=== PATIENT | female | born 1960 | race Caucasian/White ===

== ENCOUNTER 2017-01-27 12:55 | Emergency (ER) | payer MEDICARE, BC ==
[2017-01-27] MEDS ORDERED: Morphine INJ* 4 MG/ML 1 ML SYRINGE IV ONE (13:30)
[2017-01-27] MEDS ORDERED: NS 0.9% 1000 ML* 1,000 ML IV ONE (13:30)
[2017-01-27] MEDS ORDERED: Ondansetron INJ* 2 MG/ML VIAL IV ONE (13:30)
[2017-01-27] MEDS ORDERED: Ondansetron INJ* 2 MG/ML VIAL ONE (13:32)
[2017-01-27] MEDS ORDERED: Morphine INJ* 4 MG/ML 1 ML SYRINGE ONE (13:32)
[2017-01-27 14:11] LABS: Hematocrit 38 % (35-47); Hemoglobin 12.6 g/dl (12.0-16.0); Mean Corpuscular HGB Conc 33 g/dl (31-36); Mean Corpuscular Hemoglobin 29 pg (27-31); Mean Corpuscular Volume 87 fL (80-97); Mean Platelet Volume 8 um3 (7.4-10.4); Red Blood Count 4.35 10^6/ul (4.0-5.4); Red Cell Distribution Width 14 % (10.5-15); White Blood Count 9.4 10^3/ul (3.5-10.8)
[2017-01-27 14:21] LABS: Albumin 4.2 g/dL (3.2-5.2); Calcium 9.8 mg/dL (8.6-10.3); EGFR African American 106.1 (>60); EGFR Non-African American 82.5 (>60); Globulin 2.6 g/dL (2-4); Potassium 3.7 mmol/L (3.5-5.0); Total Bilirubin 0.4 mg/dL (0.2-1.0); Total Protein 6.8 g/dL (6.4-8.9)
--- NOTE | 2017-01-27 14:21 | RAD ---
Indication: Fall, head injury. CT of the brain was performed without IV contrast. Ventricular structures are midline. No midline shift is noted. The extra-axial spaces are unremarkable. There is no evidence of intracranial mass or hemorrhage. No other high or low density lesions are identified. Mastoid air cells and paranasal sinuses are unremarkable. IMPRESSION: No intracranial mass or hemorrhage is noted.
--- NOTE | 2017-01-27 14:35 | RAD ---
HISTORY: Fall, facial trauma COMPARISONS: None relevant TECHNIQUE: Multiple contiguous axial CT scans were obtained of the face without intravenous contrast, with coronal and sagittal multiplanar reformations. FINDINGS: BONES: There is no displaced fracture or dislocation. The orbital rim is intact. The zygomatic arch is intact. The pterygoid plates are intact. ORBITS: The globes are round. The optic nerves are symmetric. The extraocular musculature is normal. There is no post septal or intraconal inflammatory change. There is no retrobulbar hematoma. PARANASAL SINUSES: The paranasal sinuses are clear. The nasal septum is deviated to the right BRAIN AND SOFT TISSUE: Unremarkable. OTHER: None. IMPRESSION: NO FACIAL FRACTURE
--- NOTE | 2017-01-27 14:36 | RAD ---
Indication: Neck injury. CT of the cervical spine was obtained in the axial plane. Sagittal and coronal reconstructed images were obtained. Skull base demonstrates no fracture. Mastoid air cells are well aerated. C1 ring is intact. The vertebral bodies appear normal in height. No evidence of fracture is noted. Disc space narrowing at C4-C5, C5-C6 and C6-C7 is noted. Spondylitic ridge is noted. No central foraminal stenosis is identified. Lung apices are otherwise unremarkable. IMPRESSION: Degenerative disc disease at C4-C5, C5-C6 and C6-C7 without evidence of fracture.
[2017-01-27] MEDS ORDERED: HYDROmorphone* 1 MG/ML 1 ML SYR IV SLOW PU ONE ×2 (14:48→17:13)
--- NOTE | 2017-01-27 16:01 | RAD ---
INDICATION: Right shoulder injury. TECHNIQUE: 4 views of the right shoulder were obtained. FINDINGS: There is mild superior subluxation of the humeral head. The bones are otherwise in normal alignment. No fracture is seen. There is mild to moderate osteoarthritic change in the glenohumeral joint. IMPRESSION: 1. MILD SUPERIOR SUBLUXATION OF THE HUMERAL HEAD NO EVIDENCE FOR FRACTURE. 2. MILD TO MODERATE OSTEOARTHRITIC CHANGE.
--- NOTE | 2017-01-27 16:03 | RAD ---
INDICATION: Right clavicle trauma. TECHNIQUE: 2 views of the right clavicle were obtained. FINDINGS: The bones are in normal alignment. No fracture is seen. Joint spaces appear maintained. IMPRESSION: NO EVIDENCE FOR FRACTURE.
--- NOTE | 2017-01-27 16:07 | RAD ---
INDICATION: Trauma, right shoulder pain. COMPARISON: There are no prior studies available for comparison. TECHNIQUE: Dual-energy PA and lateral views of the chest were obtained. FINDINGS: The heart is within normal limits in size. Mediastinal and hilar contours appear within normal limits. The lungs are clear. No pleural effusion or pneumothorax is seen. There are multiple surgical clips in the left axillary region most consistent with a prior axillary node dissection. No fracture is seen. IMPRESSION: POSTSURGICAL CHANGES, NO EVIDENCE FOR ACUTE FINDING.
[2017-01-27 16:36] LABS: Urine Bilirubin Negative (Negative); Urine Glucose Negative (Negative); Urine Nitrite Negative (Negative)
--- NOTE | 2017-01-27 18:26 | ED ---
Doug Cordon Angela, scribed for Mook Chandler MD on 01/27/17 at 1401 . Adult Trauma - HPI Summary HPI Summary: This pt is a 56 y/o right-hand dominant female presenting to [facility] s/p mechanical fall today. Pt notes she tripped over a dog leash and fell forward, and landed on her face on the ground. Pt reports facial pain, right clavicular pain, right shoulder pain, right-sided back pain, and neck pain on the right. Her pain is aggravated with deep breathing. She states having pain in her teeth. Pt denies SOB, chest pain, knee pain, hip pain, abd pain, LOC, syncope, weakness or numbness in UE or LE. - History of Current Complaint Chief Complaint: EDGeneral Stated Complaint: FALL Hx Obtained From: Patient Mechanism of Injury: Fall Current Severity: Severe Pain Intensity: 8 Pain Scale Used: 0-10 Numeric Location: Head - face, right shoulder, Neck Aggravating Factor(s): Movement Alleviating Factor(s): Nothing Associated Signs & Symptoms: Positive: Ecchymosis. Negative: SOB, Chest Pain, Nausea/Vomiting, Loss of Consciousness, Numbness/Weakness - Allergy/Home Medications Allergies/Adverse Reactions: Allergies Allergy/AdvReac Type Severity Reaction Status Date / Time No Known Allergies Allergy Verified 11/01/15 12:15 PMH/Surg Hx/FS Hx/Imm Hx Endocrine/Hematology History: Denies: Hx Diabetes Cardiovascular History: Reports: Hx Hypertension - CONTROLLED Denies: Hx Pacemaker/ICD Respiratory History: Denies: Hx Asthma History: Denies: Hx Renal Disease Musculoskeletal History: Reports: Hx Back Problems Denies: Hx Rheumatoid Arthritis, Hx Osteoporosis Sensory History: Denies: Hx Hearing Aid Neurological History: Reports: Other Neuro Impairments/Disorders - PAIN CLINIC PATIENT Psychiatric History: Denies: Hx Panic Disorder - Cancer History Cancer Type, 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, Hx Chemotherapy: Yes - BREAST 2007 Hx Radiation Therapy: Yes - BREAST 2008 - Surgical History Surgery Procedure, Year, and Place: herniated L4/5 &L5-S1 DISKECTOMY/ LAMINECTOMY 1996, 2000 (poor outcome first time)LUMPECTOMY LEFT BREAST 2007, BUNIONECTOMY AND SCREW ON LT BIG TOE,WISDOM TEETH,LT KNEE MENISCUS Infectious Disease History: No Infectious Disease History: Denies: Hx Clostridium Difficile, Hx Hepatitis, Hx Human Immunodeficiency Virus (HIV), Hx of Known/Suspected MRSA, Hx Shingles, Hx Tuberculosis, Hx Known/ Suspected VRE, Hx Known/Suspected VRSA, History Other Infectious Disease, Traveled Outside the [place] in Last 30 Days - Social History Alcohol Use: Occasionally Alcohol Amount: several drinks/week Substance Use Type: Reports: None Smoking Status (MU): Never Smoked Tobacco Review of Systems Negative: Fever, Chills Positive: Dental Pain, Other - face pain Negative: Chest Pain Negative: Shortness Of Breath Negative: Abdominal Pain, Vomiting, Nausea Positive: no symptoms reported Positive: Other - right clavicular pain, right shoulder, neck pain, back pain Positive: Bruising Negative: Weakness, Numbness Positive: Anxious All Other Systems Reviewed And Are Negative: Yes Physical Exam - Summary Physical Exam Summary: The patient is well-nourished in mild acute distress. The skin is warm and dry and skin color reflects adequate perfusion. HEENT: The head is normocephalic. The pupils are equal and reactive. Extra ocular movements are intact. The conjunctivae are clear and without drainage. Nares are patent and without drainage. Mouth reveals moist mucous membranes and the throat is without erythema and exudate. The external ears are intact. The ear canals are patent and without drainage. The tympanic membranes are intact. There is no blood in the ear drums. Pt has abraded her nose and below her nose bilaterally. Pt has fractured her left lateral incisor and canine tooth. There is no numbness in her face. Neck has some pain. Respiratory: Chest is non-tender. Lungs are clear to auscultation and breath sounds are symmetrical and equal. Cardiovascular: Hear is regular rate and rhythm. There is no murmur or rub auscultated. There is no peripheral edema and pulses are symmetrical and equal. Pt has good pulses distally. Abdomen: The abdomen is soft and non-tender. There are normal bowel sounds heard in all four quadrants and there is no organomegaly palpated. Musculoskeletal: There is no reproducible back pain. Extremities are non- tender with full range of motion. There is good capillary refill. There is no peripheral edema or calf tenderness elicited. There is marked tenderness on right shoulder and clavicle with ecchymosis and swelling. Neurological: Patient is alert and oriented to person, place and time. The patient has symmetrical motor strength in all four extremities. Psychiatric: The patient has an appropriate affect and does not exhibit any anxiety or depression. GCS: 15 Triage Information Reviewed: Yes Vital Signs On Initial Exam: Initial Vitals Temp Pulse Resp BP Pulse Ox 97.6 F 70 20 112/73 99 01/27/17 13:16 01/27/17 13:16 01/27/17 13:16 01/27/17 13:16 01/27/17 13:16 Vital Signs Reviewed: Yes Diagnostics - Vital Signs Vital Signs Temp Pulse Resp BP Pulse Ox 01/27/17 13:33 20 01/27/17 13:20 97.3 F 88 20 112/73 100 01/27/17 13:16 97.6 F 70 20 112/73 99 - Laboratory Lab Results: Lab Results 01/27/17 01/27/17 01/27/17 Range/Units 13:30 13:30 13:30 WBC 9.4 (3.5-10.8) 10^3/ul RBC 4.35 (4.0-5.4) 10^6/ul Hgb 12.6 (12.0-16.0) g/dl Hct 38 (35-47) % MCV 87 (80-97) fL MCH 29 (27-31) pg MCHC 33 (31-36) g/dl RDW 14 (10.5-15) % Plt Count 295 (150-450) 10^3/ul MPV 8 (7.4-10.4) um3 Neut % (Auto) 71.6 (38-83) % Lymph % (Auto) 18.5 L (25-47) % [place] % (Auto) 7.6 (1-9) % Eos % (Auto) 1.5 (0-6) % Baso % (Auto) 0.8 (0-2) % Absolute Neuts (auto) 6.7 (1.5-7.7) 10^3/ul Absolute Lymphs (auto) 1.7 (1.0-4.8) 10^3/ul Absolute Monos (auto) 0.7 (0-0.8) 10^3/ul Absolute Eos (auto) 0.1 (0-0.6) 10^3/ul Absolute Basos (auto) 0.1 (0-0.2) 10^3/ul Absolute Nucleated RBC 0 10^3/ul Nucleated RBC % 0 Sodium 134 (133-145) mmol/L Potassium 3.7 (3.5-5.0) mmol/L Chloride 101 (101-111) mmol/L Carbon Dioxide 25 (22-32) mmol/L Anion Gap 8 (2-11) mmol/L BUN 19 (6-24) mg/dL Creatinine 0.73 (0.51-0.95) mg/dL Est GFR ( Amer) 106.1 (>60) Est GFR (Non-Af Amer) 82.5 (>60) BUN/Creatinine Ratio 26.0 H (8-20) Glucose 119 H (70-100) mg/dL Lactic Acid 1.4 (0.5-2.0) mmol/L Calcium 9.8 (8.6-10.3) mg/dL Total Bilirubin 0.40 (0.2-1.0) mg/dL AST 23 (13-39) U/L ALT 19 (7-52) U/L Alkaline Phosphatase 73 (34-104) U/L Total Protein 6.8 (6.4-8.9) g/dL Albumin 4.2 (3.2-5.2) g/dL Globulin 2.6 (2-4) g/dL Albumin/Globulin Ratio 1.6 (1-3) Urine Color Urine Appearance Urine pH (5-9) Ur Specific [place] (1.010-1.030) Urine Protein (Negative) Urine Ketones (Negative) Urine Blood (Negative) Urine Nitrate (Negative) Urine Bilirubin (Negative) Urine Urobilinogen (Negative) Ur Leukocyte Esterase (Negative) Urine Glucose (Negative) 01/27/17 Range/Units 16:15 WBC (3.5-10.8) 10^3/ul RBC (4.0-5.4) 10^6/ul Hgb (12.0-16.0) g/dl Hct (35-47) % MCV (80-97) fL MCH (27-31) pg MCHC (31-36) g/dl RDW (10.5-15) % Plt Count (150-450) 10^3/ul MPV (7.4-10.4) um3 Neut % (Auto) (38-83) % Lymph % (Auto) (25-47) % [place] % (Auto) (1-9) % Eos % (Auto) (0-6) % Baso % (Auto) (0-2) % Absolute Neuts (auto) (1.5-7.7) 10^3/ul Absolute Lymphs (auto) (1.0-4.8) 10^3/ul Absolute Monos (auto) (0-0.8) 10^3/ul Absolute Eos (auto) (0-0.6) 10^3/ul Absolute Basos (auto) (0-0.2) 10^3/ul Absolute Nucleated RBC 10^3/ul Nucleated RBC % Sodium (133-145) mmol/L Potassium (3.5-5.0) mmol/L Chloride (101-111) mmol/L Carbon Dioxide (22-32) mmol/L Anion Gap (2-11) mmol/L BUN (6-24) mg/dL Creatinine (0.51-0.95) mg/dL Est GFR ( Amer) (>60) Est GFR (Non-Af Amer) (>60) BUN/Creatinine Ratio (8-20) Glucose (70-100) mg/dL Lactic Acid (0.5-2.0) mmol/L Calcium (8.6-10.3) mg/dL Total Bilirubin (0.2-1.0) mg/dL AST (13-39) U/L ALT (7-52) U/L Alkaline Phosphatase (34-104) U/L Total Protein (6.4-8.9) g/dL Albumin (3.2-5.2) g/dL Globulin (2-4) g/dL Albumin/Globulin Ratio (1-3) Urine Color Yellow Urine Appearance Clear Urine pH 8.0 (5-9) Ur Specific [place] 1.009 L (1.010-1.030) Urine Protein Negative (Negative) Urine Ketones Trace H (Negative) Urine Blood Negative (Negative) Urine Nitrate Negative (Negative) Urine Bilirubin Negative (Negative) Urine Urobilinogen Negative (Negative) Ur Leukocyte Esterase Negative (Negative) Urine Glucose Negative (Negative) Result Diagrams: 01/27/17 13:30 01/27/17 13:30 Lab Statement: Any lab studies that have been ordered have been reviewed, and results considered in the medical decision making process. - Radiology Right Shoulder XR Xray Interpretation: Positive (See Comments) - IMPRESSION: 1. Mild superior subluxation of the humeral head no evidence for fracture. 2. Mild to moderate osteoarthritic change. ED physician has reviewed this radiology report and agrees. Radiology Interpretation Completed By: Radiologist Right Clavicle XR Xray Interpretation: No Acute Changes - IMPRESSION: No evidence for fracture. ED physician has reviewed this radiology report and agrees. Radiology Interpretation Completed By: Radiologist Chest XR Xray Interpretation: No Acute Changes - IMPRESSION: Postsurgical changes, no evidence for acute finding. ED physician has reviewed this radiology report and agrees. Radiology Interpretation Completed By: Radiologist - CT Maxillofacial CT CT Interpretation: No Acute Changes - IMPRESSION: No facial fracture. ED physician has reviewed this radiology report and agrees. CT Interpretation Completed By: Radiologist Cervical Spine CT CT Interpretation: No Acute Changes - IMPRESSION: Degenerative disc disease at C4-C5, C5-C6, and C6-C7 without evidence of fracture. ED physician has reviewed this radiology report and agrees. CT Interpretation Completed By: Radiologist Brain CT CT Interpretation: No Acute Changes - IMPRESSION: No intracranial mass or hemorrhage is noted. ED physician has reviewed this radiology report and agrees. CT Interpretation Completed By: Radiologist - EKG 14:08 Cardiac Rate: NL - 76 bpm EKG Rhythm: Sinus Rhythm ST Segment: Non-Specific EKG Interpretation: Normal axis. Poor R wave progression. Re-Evaluation - Re-Evaluation First Eval Re-Evaluation Time: 17:45 Comment: I re-examined the pt and her tooth is not fracture. Her tooth is displaced anteriorly and superiorly. Adult Trauma Course/Dx - Course Course Of Treatment: This pt is a 56 y/o right-hand dominant female presenting to [facility] s/p mechanical fall today. Pt notes she tripped over a dog leash and fell forward, and landed on her face on the ground. Pt reports facial pain, right clavicular pain, right shoulder pain, right-sided back pain, and neck pain on the right. In the ED course, pt was given Dilaudid, Morphine, Zofran and IV fluids. XRs are negative for fractures, there is mild superior subluxation of the humeral head with no evidence for fracture. Pt will be discharged with a sling. - Diagnoses Provider Diagnoses: Lip abrasion, Subluxation of tooth, Concussion, Contusion of right shoulder, Contusion of right clavicle Discharge - Discharge Plan Condition: Stable Disposition: HOME Prescriptions: oxyCODONE/Acetamin 5/325 MG* [Percocet 5/325 TAB*] 1 tab PO Q6H PRN #20 tab MDD 4 PRN Reason: pain Patient Education Materials: Concussion (ED), Contusion in Adults (ED) Referrals: Chloé Contreras MD [Primary Care Provider] - Additional Instructions: Follow up with your dentist. Use ice on right shoulder to alleviate pain and swelling. Please use the sling for comfort. The documentation as recorded by the Doug sanderson Angela accurately reflects the service I personally performed and the decisions made by me, Mook Chandler MD.
[2017-01-27 18:53] VITALS: BP 116/70
== END 2017-01-27 18:39 | disposition home or self-care (01) ==
LOC: ED 12:55
DX: S00.511A Abrasion of lip, initial encounter (principal); R58 Hemorrhage, not elsewhere classified; S40.011A Contusion of right shoulder, initial encounter; F41.9 Anxiety disorder, unspecified; W19.XXXA Unspecified fall, initial encounter; Y93.9 Activity, unspecified; Y92.9 Unspecified place or not applicable; Y99.9 Unspecified external cause status
CPT/HCPCS: 36415; 70450; 70486; 71020; 72125; 80053; 81003; 83605; 85025; 93005; 96374; 96375; 99284; J1170; J2270; J2405

== ENCOUNTER 2018-02-06 11:47 | Inpatient (IN) | payer BC, MEDICARE ==
--- NOTE | 2018-02-06 12:20 | ED ---
Psychiatric Complaint - HPI Summary HPI Summary: Pt is a 57 year old female presenting to the ED with a chief complaint of mental health issues. She states she has been struggling for a while now and that she is having suicidal thoughts. - History Of Current Complaint Chief Complaint: EDMentalHealth Time Seen by Provider: 02/06/18 12:07 Hx Obtained From: Patient Onset/Duration: Gradual Onset, Still Present Timing: Constant Severity Initially: Moderate Severity Currently: Moderate Character: Depressed Aggravating Factor(s): Nothing Alleviating Factor(s): Nothing Has Suicidal: Reports: Thoughts - Allergies/Home Medications Allergies/Adverse Reactions: Allergies Allergy/AdvReac Type Severity Reaction Status Date / Time No Known Allergies Allergy Verified 02/06/18 11:55 Home Medications: Home Medications Bupropion XL* [Wellbutrin XL *] 150 mg PO DAILY 02/06/18 [History Confirmed 02/15] Ergocalciferol (Vitamin D2) [Vitamin D2] 50,000 unit PO WEEKLY 02/06/18 [ History Confirmed 02/06/18] Gabapentin CAP(*) [Neurontin 400 mg CAP(*)] 800 mg PO QID 02/06/18 [History Confirmed 02/06/18] LORazepam TAB(*) [Ativan 0.5 MG TAB (*)] 0.5 mg PO BID PRN 02/06/18 [History Confirmed 02/06/18] Lisinopril TAB* [Prinivil TAB*] 10 mg PO DAILY 02/06/18 [History Confirmed 02/06] lamoTRIgine TAB(*) [LaMICtal TAB(*)] 100 mg PO DAILY 02/06/18 [History Confirmed 02/06/18] PMH/Surg Hx/FS Hx/Imm Hx Previously Healthy: No Endocrine/Hematology History: Denies: Hx Diabetes Cardiovascular History: Reports: Hx Hypertension - CONTROLLED Denies: Hx Pacemaker/ICD Respiratory History: Denies: Hx Asthma History: Denies: Hx Renal Disease Musculoskeletal History: Reports: Hx Back Problems Denies: Hx Rheumatoid Arthritis, Hx Osteoporosis Sensory History: Denies: Hx Hearing Aid Neurological History: Reports: Other Neuro Impairments/Disorders - PAIN CLINIC PATIENT Psychiatric History: Denies: Hx Panic Disorder - Cancer History Cancer Type, 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, Hx Chemotherapy: Yes - BREAST 2007 Hx Radiation Therapy: Yes - BREAST 2008 - Surgical History Surgery Procedure, Year, and Place: herniated L4/5 &L5-S1 DISKECTOMY/ LAMINECTOMY 1996, 2000 (poor outcome first time)LUMPECTOMY LEFT BREAST 2007, BUNIONECTOMY AND SCREW ON LT BIG TOE,WISDOM TEETH,LT KNEE MENISCUS Infectious Disease History: No Infectious Disease History: Denies: Hx Clostridium Difficile, Hx Hepatitis, Hx Human Immunodeficiency Virus (HIV), Hx of Known/Suspected MRSA, Hx Shingles, Hx Tuberculosis, Hx Known/ Suspected VRE, Hx Known/Suspected VRSA, History Other Infectious Disease, Traveled Outside the in Last 30 Days - Family History Known Family History: Positive: Hypertension, Diabetes - Social History Alcohol Use: Occasionally Alcohol Amount: several drinks/week Substance Use Type: Reports: None Smoking Status (MU): Never Smoked Tobacco Review of Systems Negative: Fever Positive: Depressed All Other Systems Reviewed And Are Negative: Yes Physical Exam - Summary Physical Exam Summary: General: well-appearing, no pain distress Skin: warm, color reflects adequate perfusion, dry Head: normal Eyes: EOMI, SHONDA ENT: normal Neck: supple, nontender Respiratory: CTA, breath sounds present Cardiovascular: RRR Abdomen: soft, nontender Bowel: present Musculoskeletal: normal, strength/ROM intact Neurological: sensory/motor intact, A&O x3 Psychological: Tearful Triage Information Reviewed: Yes Vital Signs On Initial Exam: Initial Vitals Temp Pulse Resp BP Pulse Ox 98.6 F 88 16 151/103 99 02/06/18 11:50 02/06/18 11:50 02/06/18 11:50 02/06/18 11:50 02/06/18 11:50 Vital Signs Reviewed: Yes Diagnostics - Vital Signs Vital Signs Temp Pulse Resp BP Pulse Ox 02/06/18 11:50 98.6 F 88 16 151/103 99 - Laboratory Result Diagrams: 02/06/18 12:18 02/06/18 12:18 Lab Statement: Any lab studies that have been ordered have been reviewed, and results considered in the medical decision making process. Course/Dx - Course Course Of Treatment: ADMIT [facility] AFTER [facility] - Differential Dx/Clinical Impression Provider Diagnosis: HTN (hypertension), Mental health problem Discharge - Sign-Out/Discharge Documenting (check all that apply): Patient Departure - Discharge Plan Condition: Stable Disposition: ADMITTED TO [facility] - Billing Disposition and Condition Condition: STABLE Disposition: Admitted to [facility] - Attestation Statements Document Initiated by Jo Annibe: Yes Documenting Scribe: Tianna Daigle Provider For Whom Chu is Documenting (Include Credential): Shamar Drake MD. Scribe Attestation: ITianna, scribed for Shamar Drake MD. on 02/06/18 at 1932. Scribe Documentation Reviewed: Yes Provider Attestation: The documentation as recorded by the jo annibcourtney, Tianna Daigle accurately reflects the service I personally performed and the decisions made by me, Shamar Drake MD.
[2018-02-06 12:27] LABS: ABS Basophils 0.1 10^3/ul (0-0.2); ABS Eosinophils 0.2 10^3/ul (0-0.6); ABS Lymphocytes 2.1 10^3/ul (1.0-4.8); ABS Monocytes 0.4 10^3/ul (0-0.8); ABS Neutrophils 3.5 10^3/ul (1.5-7.7); ABS Nucleated RBC 0 10^3/ul; Eosinophil % 2.8 % (0-6); Hematocrit 41 % (35-47); Lymphocyte % 33.3 % (25-47); Mean Corpuscular HGB Conc 34 g/dl (31-36); Mean Corpuscular Hemoglobin 30 pg (27-31); Mean Corpuscular Volume 89 fL (80-97); Mean Platelet Volume 7.4 um3 (7.4-10.4); Nucleated Red Blood Cells % 0; Platelet Count 267 10^3/ul (150-450); Red Blood Count 4.63 10^6/ul (4.00-5.40); Red Cell Distribution Width 13 % (10.5-15); White Blood Count 6.3 10^3/ul (3.5-10.8)
[2018-02-06 12:43] LABS: EGFR Non-African American 73.9 (>60)
[2018-02-06 13:02] LABS: Urine Appearance Clear; Urine Blood Negative (Negative); Urine Color Straw; Urine Ketones Negative (Negative); Urine Protein Negative (Negative); Urine Red Blood Cell Absent (Absent); Urine Specific Gravity 1.005 (1.010-1.030); Urine Urobilinogen Negative (Negative); Urine White Blood Cell Trace(0-5/hpf) (Absent)
[2018-02-06] MEDS ORDERED: Acetaminophen TAB* 325 MG PO PRN (20:04)
[2018-02-06] MEDS: Gabapentin CAP(*) 400 MG PO SCH (20:49)
[2018-02-06] MEDS: LORazepam TAB(*) 0.5 MG PO PRN (20:49)
[2018-02-07] MEDS: Gabapentin CAP(*) 400 MG PO SCH ×4 (08:18→20:53)
[2018-02-07] MEDS: BuPROPion XL* 300 MG TAB.XL PO SCH (08:19)
[2018-02-07] MEDS: Vitamin THERAPEUTIC TAB PO SCH (08:20)
[2018-02-07] MEDS: LORazepam TAB(*) 0.5 MG PO PRN ×2 (08:20→20:59)
[2018-02-07] MEDS: Lisinopril TAB* 10 MG PO SCH (08:20)
[2018-02-07] MEDS ORDERED: lamoTRIgine TAB(*) 100 MG PO SCH (09:00)
[2018-02-07] MEDS: Acetaminophen TAB* 325 MG PO PRN ×2 (12:05→17:42)
--- NOTE | 2018-02-07 13:54 | HP ---
HISTORY AND PHYSICAL: DATE OF ADMISSION: 02/06/18 PROVIDER: Oralia Nye NP, in Psychiatry. SUPERVISING PHYSICIAN: Chandler Varela MD * (DICTATED BY ORALIA NYE NP ) JUSTIFICATION FOR ADMISSION: The patient is in need of 24-hour supervision and care secondary to suicidal ideation that has been growing for the past month. CHIEF COMPLAINT: "I have been crying for a few weeks now." HISTORY OF PRESENT ILLNESS: The patient is a 57-year-old, partnered, white woman with a history of depression, who arrives, brought by her partner, Veronica, and is admitted on a voluntary status after admitting that she is not going to be able to be safe when her partner, Veronica, goes back to work on Wednesday. Ana asserts she has been crying for a few weeks. She has a hard time at this time of year because her partner is a teacher and goes back to work and Ana cannot go back to work due to back pain and being on disability. She was a psychotherapist. She feels incredibly guilty because her family of origin wants her to pull herself up by her bootstraps, but she is unable to do that as she is in physical pain and is incredibly depressed and anxious. 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 She has seen him here at the hospital and he has been very helpful. She has titrated on her own medications down (with the knowledge of her providers) because she was not feeling well and did not know the source of the illness. She was taking tramadol and she would feel withdrawal symptoms between doses and she did not like that, so she wanted to stop tramadol. The other medications were reduced due to her feeling that she was overmedicated. She has a goal here of wanting to leave with the most helpful medications being prescribed and all of her providers being on board: she says, "I want to be a whole person." She states she felt better last summer, family has a house in [facility], where she goes and feels better and surrounded by family. She says this year, she came back on 01/10/18 and she had struggled there this year. She would like to not be crying all of the sudden. She would like relief from her suffering. PAST PSYCHIATRIC HISTORY: She has been admitted, she says, "a couple of times" at [facility] around 2010. 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 She has been diagnosed with fibromyalgia. She sees Yani Phillip for her psychiatric medications. She was seeing Arielle Staples for many years, but felt too comfortable there, as her therapist. She has now been referred to Rubina Jurado, as her new therapist, but has not yet made an appointment there. Her previous psychiatric meds have included Prozac, Pristiq, lorazepam, Wellbutrin, Lamictal, and Abilify. PAST MEDICAL HISTORY: She has an extensive medical history including fibromyalgia, breast cancer, laminectomies of her back, bunion surgery. She is in severe physical pain much of the time, but does not want to take opiates and she is working through figuring out how to get off disability in relation to her medical illness. FAMILY HISTORY: Mom and dad are both having depression on their sides. There is more depression on dad's side, more anxiety on mom's side. She says both sides of her family are struck with alcohol abuse. SUBSTANCE ABUSE: She does not smoke. She drinks wine, maybe 3 times a year and then only 1 glass. SOCIAL HISTORY: Ana currently lives in [place], [place] with her partner, Veronica. They have been together 18 years. She has 2 children, a son and a daughter, and a step daughter, and she now has a granddaughter. She is not currently employed. She has never been in the . She has no legal problems. REVIEW OF SYMPTOMS: The patient reports feeling fatigued. She denies shortness of breath, heat or cold intolerance, chest pain or abdominal pain. She denies neurological symptoms. She denies fevers or changes in weight. PHYSICAL EXAMINATION VITAL SIGNS: On 02/07/18, temperature was 97.6, pulse 82, respirations 16, O2 sat 100%, blood pressure 124/83. For further exam data, please see emergency department records. MENTAL STATUS EXAM: This is a slim, averagely built woman, who appears her stated age, has culver short hair. She is superficially bright and happy, but dissolves into tears quite easily. She is calm and cooperative. Her speech is normal rate and volume, but there is some variation in tone as she has larynx spasms. She is dysthymic. She is slightly tearful. Her thought processes are normal. She has no delusions. No homicidal ideation at this time. She is concerned that she would be suicidal at home, but she is safe on the unit. She is having no hallucinations. Her insight is good, her judgment is good. She is alert and oriented x3. LABORATORY DATA: Most data are within normal limits. Monocyte percentage is high at 7.1. BUN-creatinine ratio is high at 21.3. Hemoglobin A1c is high at 5.7. Lipids are normal. TSH is 1.83. Urine specific gravity is low. Leukocyte esterase is present at trace levels. Urine squamous epithelial cells are present. Her toxicology screen is clear. DIAGNOSIS: Manson I: Major depressive disorder, rule out generalized anxiety disorder. Manson II: r/o personality disorder IMPRESSION: This is a 57-year-old woman, who is depressed and distressed in the context of wanting to be more functional in her life and is choosing to try to feel better including increasing or decreasing medications, changing therapists, and coming to the hospital. PLAN: The patient is admitted to the adult behavioral health unit and placed on q.15-minute checks for her own safety. She is encouraged to participate in supportive milieu, individual, and group therapies. Estimated length of stay is 5 to 7 days. We are discontinuing Lamictal and I would like to start Pristiq , but it may not be available in the pharmacy. We will monitor for mood and thought changes. Discharge planning will include family involvement and outpatient providers. ORALIA NYE, CHENCHO [id number]/[facility] #: [id number] CHARIS
[2018-02-08] MEDS: BuPROPion XL* 300 MG TAB.XL PO SCH (08:53)
[2018-02-08] MEDS: Lisinopril TAB* 10 MG PO SCH (08:53)
[2018-02-08] MEDS: Gabapentin CAP(*) 400 MG PO SCH ×4 (08:54→20:30)
[2018-02-08] MEDS: Vitamin THERAPEUTIC TAB PO SCH (08:54)
[2018-02-08] MEDS: LORazepam TAB(*) 0.5 MG PO PRN (08:58)
[2018-02-08] MEDS: CMC: Desvenlafaxine (NF) 50 MG TAB PO SCH (09:57)
--- NOTE | 2018-02-08 11:43 | PN ---
MHU: Group Therapy Note - Service Type Service Type: [id number] Group Psychotherapy - Cognitive Behavioral Group Therapy ( CBT):Patient was attentive and participatory in CBT programming this morning, and remained in good behavioral control. Patient expressed positive insights regarding relevant treatment interventions and goals.
[2018-02-08] MEDS: Acetaminophen TAB* 325 MG PO PRN ×2 (11:47→20:31)
[2018-02-08] MEDS: Naproxen TAB* 250 MG PO PRN (11:47)
--- NOTE | 2018-02-08 16:35 | PN ---
Subjective - Subjective Date of Service: 02/08/18 Service Type: 42703 Hosp care 35 min high complexity Subjective: Marva is grieving her loss of previous lifestyle and is very tearful, although she reports she feels better today. She has hopes that her medical team will be coordinated here. She knows that Pristiq has been useful in the past. She is in pain. She is taking Neurontin for that. When I suggested Lyrica , as she also has fibromyalgia, she stated she thinks it made her suicidal, but suggested that I consult Dr. Watkins's notes. She would like her doctors to communicate, but also doesn't want any of her doctors eliminated from her care. Objective - Appearance Appearance: Healthy Appearing Dysmorphic Features: No Hygiene: Normal Grooming: Well Kept - Behavior Psychomotor Activities: Normal Exhibits Abnormal Movement: No - Attitude and Relatedness Attitude and Relatedness: Needy Eye Contact: Good - Speech Quality: Unpressured Latencies: Normal Quantity: Copious - Mood Patient's Decription of Mood: "Sad" - Affect Observed Affect: Tearful - Thought Process Patient's Thought Process: Coherent Thought Content: Yes Passive Wish, No Suicidal Planning, No Homicidal Ideation, No Paranoid Ideation - Sensorium Experiencing Hallucinations: No, Sensorium is Clear Type of Hallucinations: Visual: No, Auditory: No, Command: No - Level of Consciousness Level of Consciousness: Alert Orientation: Yes Intact, Yes Orientated to Time, Yes Orientated to Place, Yes Orientated to Person - Impulse Control Impulse Control: Intact - Insight and Judgement Insight and Judgement: Fair - Group Participation Particating in Group Activities: Yes - Medication Management Medication Management Adherence: Yes - Additional Observations Comments: Marva looks healthy and well and is moving in what appears to be a comfortable manner. She endorses pain in her back, though. She is very tearful, sobbing at times. She is able to collect herself, but dissolves into tears several times. Assessment - Assessment Merits Inpatient Hospitalization: For Immediate Safety, For Discharge Planning Clinical Impression: Marva is severely depressed and highly anxious. In addition, she is grieving the loss of her careers as she is too ill to work at them. There is an element of dramatic expression of her distress as well as high and not reasonable expectations. Plan - Plan Treatment Plan: Name: MARVA BIRMINGHAM Birthdate: 1960 [id number] Continued Medication Management: Different Medication Medications: Current Medications Acetaminophen (Tylenol Tab*) 975 mg PO Q6H PRN PRN Reason: PAIN or TEMP > 101 F Last Admin: 02/08/18 11:47 Dose: 975 mg Al Hydrox/Mg Hydrox/Simethicone (Maalox Plus*) 30 ml PO Q4H PRN PRN Reason: INDIGESTION Bupropion HCl (Bupropion Xl*) 300 mg PO DAILY [facility] Last Admin: 02/08/18 08:53 Dose: 300 mg Desvenlafaxine Succinate (Pristiq (Nf)) 50 mg PO DAILY [facility] Last Admin: 02/08/18 09:57 Dose: 50 mg Gabapentin (Neurontin Cap(*)) 800 mg PO QID [facility] Last Admin: 02/08/18 13:12 Dose: 800 mg Lisinopril (Prinivil Tab*) 10 mg PO DAILY [facility] Last Admin: 02/08/18 08:53 Dose: 10 mg Lorazepam (Ativan Tab(*)) 0.5 mg PO BID [facility] Multivitamins (Theragran Tab*) 1 tab PO DAILY [facility] Last Admin: 02/08/18 08:54 Dose: 1 tab Naproxen (Naprosyn Tab*) 500 mg PO Q12H PRN PRN Reason: PAIN Last Admin: 02/08/18 11:47 Dose: 500 mg - Discharge Plan Discharge Plan: Outpatient Follow Up Outpatient Program: Private Clinician(s) Additional Comments: Marva will be started on Pristiq 50 mg. We will follow her progress. It is anticipated that she will improve in this supportive setting and perhaps using comparison to her own situation. I have been in contact with her psychiatric provider, Yani Phillip, who agrees with my assessment and would like to continue down this path.
[2018-02-08] MEDS: LORazepam TAB(*) 0.5 MG PO SCH (20:31)
[2018-02-09] MEDS: Acetaminophen TAB* 325 MG PO PRN ×2 (06:39→16:37)
[2018-02-09] MEDS: Gabapentin CAP(*) 400 MG PO SCH ×4 (08:46→20:06)
[2018-02-09] MEDS: BuPROPion XL* 300 MG TAB.XL PO SCH (08:47)
[2018-02-09] MEDS: LORazepam TAB(*) 0.5 MG PO SCH (08:47)
[2018-02-09] MEDS: Lisinopril TAB* 10 MG PO SCH (08:47)
[2018-02-09] MEDS: Vitamin THERAPEUTIC TAB PO SCH (08:48)
[2018-02-09] MEDS: Naproxen TAB* 250 MG PO PRN ×2 (08:48→20:07)
[2018-02-09] MEDS: CMC: Desvenlafaxine (NF) 50 MG TAB PO SCH (08:48)
--- NOTE | 2018-02-09 14:26 | PN ---
Subjective - Subjective Date of Service: 02/09/18 Service Type: 90632 Hosp care 25 min moderate complexity Subjective: Marva has been busy today in groups and visiting with her multimedia manager. She has been assertive an wanting to meet and discusses that she still doesn't feel safe to go home and wonders what will happen when Wednesday comes and she's home alone again. She would like to stay through the weekend at this point. She discusses how she feels wrong-footed and off center. she reports sleeping poorly , having fluctuating anxiety throughout the day, and not being able to have a bowel movement. Objective - Appearance Appearance: Healthy Appearing Dysmorphic Features: No Hygiene: Normal Grooming: Well Kept - Behavior Psychomotor Activities: Normal Exhibits Abnormal Movement: No - Attitude and Relatedness Attitude and Relatedness: Needy Eye Contact: Good - Speech Quality: Unpressured Latencies: Normal Quantity: Copious - Mood Patient's Decription of Mood: "Fine" - Affect Observed Affect: Tearful Affect Consistent with: Dysphoria - Thought Process Patient's Thought Process: Coherent Thought Content: Yes Passive Wish, Yes Suicidal Planning, No Homicidal Ideation, No Paranoid Ideation - Sensorium Experiencing Hallucinations: No, Sensorium is Clear Type of Hallucinations: Visual: No, Auditory: No, Command: No - Level of Consciousness Level of Consciousness: Alert Orientation: Yes Intact, Yes Orientated to Time, Yes Orientated to Place, Yes Orientated to Person - Impulse Control Impulse Control: Tenuous - Insight and Judgement Insight and Judgement: Fair - Group Participation Particating in Group Activities: Yes - Medication Management Medication Management Adherence: Yes - Additional Observations Comments: Marva is tearful today, but is not as upset as she was yesterday. She is trying to hold back at times with what she is feeling. Her judgment is good, but her insight into what is causing her pain seems to be only fair as she struggles to understand why she is in such distress so much of the time. Assessment - Assessment Merits Inpatient Hospitalization: For Immediate Safety, For Discharge Planning Inpatient DSM-V Dx: F33.2 Clinical Impression: Marva is severely depressed and highly anxious. In addition, she is grieving the loss of her careers as she is too ill to work at them. There is an element of dramatic expression of her distress as well as high and not reasonable expectations. Anxiety seems to be a larger component of her distress. She would like to feel calm and some of this is within her power to effect. Plan - Plan Treatment Plan: Name: MARVA BIRMINGHAM Birthdate: 1960 [id number] Medications: Current Medications Acetaminophen (Tylenol Tab*) 975 mg PO Q6H PRN PRN Reason: PAIN or TEMP > 101 F Last Admin: 02/09/18 06:39 Dose: 975 mg Al Hydrox/Mg Hydrox/Simethicone (Maalox Plus*) 30 ml PO Q4H PRN PRN Reason: INDIGESTION Bupropion HCl (Bupropion Xl*) 300 mg PO DAILY [facility] Last Admin: 02/09/18 08:47 Dose: 300 mg Desvenlafaxine Succinate (Pristiq (Nf)) 50 mg PO DAILY [facility] Last Admin: 02/09/18 08:48 Dose: 50 mg Gabapentin (Neurontin Cap(*)) 800 mg PO QID [facility] Last Admin: 02/09/18 13:15 Dose: 800 mg Lisinopril (Prinivil Tab*) 10 mg PO DAILY [facility] Last Admin: 02/09/18 08:47 Dose: 10 mg Lorazepam (Ativan Tab(*)) 0.5 mg PO BID [facility] Last Admin: 02/09/18 08:47 Dose: 0.5 mg Multivitamins (Theragran Tab*) 1 tab PO DAILY [facility] Last Admin: 02/09/18 08:48 Dose: 1 tab Naproxen (Naprosyn Tab*) 500 mg PO Q12H PRN PRN Reason: PAIN Last Admin: 02/09/18 08:48 Dose: 500 mg - Discharge Plan Discharge Plan: Outpatient Follow Up Additional Comments: Marva will be started on Pristiq 50 mg. We will follow her progress. It is anticipated that she will improve in this supportive setting and perhaps using comparison to her own situation. I have been in contact with her psychiatric provider, Yani Phillip, who agrees with my assessment and would like to continue down this path. We will change from Ativan to Klonopin to attempt to give her a smoother feeling regarding reduced anxiety. Hydroxyzine will be employed for sleep. Colace is started as well.
--- NOTE | 2018-02-09 17:37 | PN ---
MHU: Group Therapy Note - Service Type Service Type: [id number] Group Psychotherapy - Group Participation Patient Participating in Group: Yes Level of Group Participation: Attentive, Spontaneously Participate Relatedness to Group: Well Related - Additional Group Comments Group Comments: Medication Education Group: Patient was attentive and participatory in group, and remained in good behavioral control. Patient expressed positive insights regarding relevant treatment interventions. Patient stated understanding of material discussed and had appropriate questions.
[2018-02-09] MEDS: Docusate CAP* 100 MG PO SCH (20:07)
[2018-02-09] MEDS: clonazePAM TAB(*) 0.5 MG PO SCH (20:07)
[2018-02-09] MEDS: hydrOXYzine HCL TAB* 25 MG PO SCH (20:07)
[2018-02-10] MEDS: BuPROPion XL* 300 MG TAB.XL PO SCH (09:13)
[2018-02-10] MEDS: Vitamin THERAPEUTIC TAB PO SCH (09:13)
[2018-02-10] MEDS: Lisinopril TAB* 10 MG PO SCH (09:14)
[2018-02-10] MEDS: Gabapentin CAP(*) 400 MG PO SCH ×4 (09:14→20:06)
[2018-02-10] MEDS: Docusate CAP* 100 MG PO SCH ×2 (09:14→20:07)
[2018-02-10] MEDS: clonazePAM TAB(*) 0.5 MG PO SCH ×3 (09:15→20:07)
[2018-02-10] MEDS: CMC: Desvenlafaxine (NF) 50 MG TAB PO SCH (09:15)
--- NOTE | 2018-02-10 12:33 | PN ---
Subjective - Subjective Date of Service: 02/10/18 Service Type: 41330 Hosp care 25 min moderate complexity Subjective: Marva slept last night with the addition of hydroxyzine, waking only to use the bathroom. She continues to want to reduce the overall level of stress she feels and the addition of klonopin may go some distance in helping that. Marva states she doesn't know anything about herself and that she is able to help others nearly to the exclusion of helping herself. She would like to be able to listen to her body rather than her head. Objective - Appearance Appearance: Healthy Appearing Dysmorphic Features: No Hygiene: Normal Grooming: Fairly Well Kept - Behavior Psychomotor Activities: Normal Exhibits Abnormal Movement: No - Attitude and Relatedness Attitude and Relatedness: Cooperative Eye Contact: Good - Speech Quality: Unpressured Latencies: Normal Quantity: Appropriate - Mood Patient's Decription of Mood: "Okay" - Affect Observed Affect: Fair Affect Consistent with: Dysphoria - Thought Process Patient's Thought Process: Coherent Thought Content: Yes Passive Wish, Yes Suicidal Planning, No Homicidal Ideation, No Paranoid Ideation - Sensorium Experiencing Hallucinations: No, Sensorium is Clear Type of Hallucinations: Visual: No, Auditory: No, Command: No - Level of Consciousness Level of Consciousness: Alert Orientation: Yes Intact, Yes Orientated to Time, Yes Orientated to Place, Yes Orientated to Person - Impulse Control Impulse Control: Tenuous - Insight and Judgement Insight and Judgement: Fair - Group Participation Particating in Group Activities: Yes - Medication Management Medication Management Adherence: Yes - Additional Observations Comments: Marva is much less tearful today and not as upset as she was the first days she was here. Her judgment is good, but her insight into what is causing her pain seems to be only fair as she struggles to understand why she is in such distress so much of the time. Her affect is full and she has insight into her need to combine the information she receives from her body with the thoughts she is having. Assessment - Assessment Merits Inpatient Hospitalization: For Immediate Safety Inpatient DSM-V Dx: F33.2 Clinical Impression: Marva is severely depressed and highly anxious. In addition, she is grieving the loss of her careers as she is too ill to work at them. There was an element of dramatic expression to her distress; there are high and unreasonable expectations. She is growing in her ability to realize that some of her expectaions of herself are no reasonable. Anxiety seems to be a larger component of her distress. She would like to feel calm and some of this is within her power to effect. Still, she identifies depression as a lingering factor that makes her life difficult. Plan - Plan Treatment Plan: Name: MARVA BIRMINGHAM Birthdate: 1960 [id number] Medications: Current Medications Acetaminophen (Tylenol Tab*) 975 mg PO Q6H PRN PRN Reason: PAIN or TEMP > 101 F Last Admin: 02/09/18 16:37 Dose: 975 mg Al Hydrox/Mg Hydrox/Simethicone (Maalox Plus*) 30 ml PO Q4H PRN PRN Reason: INDIGESTION Bupropion HCl (Bupropion Xl*) 300 mg PO DAILY [facility] Last Admin: 02/10/18 09:13 Dose: 300 mg Clonazepam (Klonopin Tab(*)) 0.5 mg PO TID [facility] Last Admin: 02/10/18 09:15 Dose: 0.5 mg Desvenlafaxine Succinate (Pristiq (Nf)) 50 mg PO DAILY [facility] Last Admin: 02/10/18 09:15 Dose: 50 mg Docusate Sodium (Colace Cap*) 100 mg PO BID [facility] Last Admin: 02/10/18 09:14 Dose: 100 mg Gabapentin (Neurontin Cap(*)) 800 mg PO QID [facility] Last Admin: 02/10/18 09:14 Dose: 800 mg Hydroxyzine HCl (Atarax Tab*) 25 mg PO BEDTIME [facility] Last Admin: 02/09/18 20:07 Dose: 25 mg Lisinopril (Prinivil Tab*) 10 mg PO DAILY [facility] Last Admin: 02/10/18 09:14 Dose: 10 mg Multivitamins (Theragran Tab*) 1 tab PO DAILY [facility] Last Admin: 02/10/18 09:13 Dose: 1 tab Naproxen (Naprosyn Tab*) 500 mg PO Q12H PRN PRN Reason: PAIN Last Admin: 02/09/18 20:07 Dose: 500 mg - Discharge Plan Additional Comments: Marva started on Pristiq 50 mg and tolerated well so far. We will follow her progress. It is anticipated that she will improve in this supportive setting and perhaps using comparison to her own situation. I have been in contact with her psychiatric provider, Yani Phillip, who agrees with my assessment and would like to continue down this path. We will change from Ativan to Klonopin to attempt to give her a more even feeling regarding reduced anxiety. Hydroxyzine will be employed for sleep. Colace is started as well. She has been encouraged to find things to entertain herself and give herself personal goals. She will also be working with Patricia Steve regarding discharge next week ( Wednesday or Wednesday).
[2018-02-10] MEDS: hydrOXYzine HCL TAB* 25 MG PO SCH (20:07)
[2018-02-10] MEDS: Naproxen TAB* 250 MG PO PRN (20:09)
[2018-02-10] MEDS: Acetaminophen TAB* 325 MG PO PRN (20:10)
[2018-02-10] MEDS: Al Hydrox/Mg Hydrox/Simet LIQ* 30 ML UDC PO PRN (20:13)
[2018-02-11] MEDS: Acetaminophen TAB* 325 MG PO PRN ×2 (08:29→20:35)
[2018-02-11] MEDS: Naproxen TAB* 250 MG PO PRN ×2 (08:29→20:36)
[2018-02-11] MEDS: CMC: Desvenlafaxine (NF) 50 MG TAB PO SCH (08:30)
[2018-02-11] MEDS: clonazePAM TAB(*) 0.5 MG PO SCH ×3 (08:30→20:35)
[2018-02-11] MEDS: BuPROPion XL* 300 MG TAB.XL PO SCH (08:31)
[2018-02-11] MEDS: Vitamin THERAPEUTIC TAB PO SCH (08:31)
[2018-02-11] MEDS: Lisinopril TAB* 10 MG PO SCH (08:31)
[2018-02-11] MEDS: Gabapentin CAP(*) 400 MG PO SCH ×4 (08:31→20:34)
[2018-02-11] MEDS: Docusate CAP* 100 MG PO SCH ×2 (08:31→20:36)
--- NOTE | 2018-02-11 13:51 | PN ---
Subjective - Subjective Date of Service: 02/11/18 Service Type: [id number] Hosp care 35 min high complexity Subjective: Marva is getting a little irritable about being here in the hospital. She is not ready to go home, but she is also annoyed by the restrictions placed on her , including that she can't have her fleece coat because it has strings or elastic in it. Objective - Appearance Appearance: Healthy Appearing Dysmorphic Features: No Hygiene: Normal Grooming: Well Kept - Behavior Psychomotor Activities: Normal Exhibits Abnormal Movement: No - Attitude and Relatedness Attitude and Relatedness: Well Related Eye Contact: Good - Speech Quality: Unpressured Latencies: Normal Quantity: Appropriate - Mood Patient's Decription of Mood: "Fine" - Affect Observed Affect: Fair Affect Consistent with: Dysphoria - Thought Process Patient's Thought Process: Coherent Thought Content: Yes Passive Wish, No Suicidal Planning, No Homicidal Ideation, No Paranoid Ideation - Sensorium Experiencing Hallucinations: No, Sensorium is Clear Type of Hallucinations: Visual: No, Auditory: No, Command: No - Level of Consciousness Level of Consciousness: Alert Orientation: Yes Intact, Yes Orientated to Time, Yes Orientated to Place, Yes Orientated to Person - Impulse Control Impulse Control: Tenuous - Insight and Judgement Insight and Judgement: Good - Group Participation Particating in Group Activities: Yes - Medication Management Medication Management Adherence: Yes - Additional Observations Comments: Marva is much less tearful today and not as upset as she was the first days she was here. Her judgment is good, but her insight into what is causing her pain seems to be only fair as she struggles to understand why she is in such distress so much of the time. Her affect is full and she has insight into her need to combine the information she receives from her body with the thoughts she is having. She would like to feel more in control of her life and more certain of all that she is deciding. Assessment - Assessment Merits Inpatient Hospitalization: For Immediate Safety Inpatient DSM-V Dx: F33.2 Clinical Impression: Marva is severely depressed and highly anxious. In addition, she is grieving the loss of her careers as she is too ill to work at them. There was an element of dramatic expression to her distress; there are high and unreasonable expectations. She is growing in her ability to realize that some of her expectations of herself are no reasonable. Anxiety seems to be a larger component of her distress. She would like to feel in control of her life. Still , she identifies depression as a lingering factor that makes her life difficult. Plan - Plan Treatment Plan: Name: MARVA BIRMINGHAM Birthdate: 1960 [id number] Medications: Current Medications Acetaminophen (Tylenol Tab*) 975 mg PO Q6H PRN PRN Reason: PAIN or TEMP > 101 F Last Admin: 02/11/18 08:29 Dose: 975 mg Al Hydrox/Mg Hydrox/Simethicone (Maalox Plus*) 30 ml PO Q4H PRN PRN Reason: INDIGESTION Last Admin: 02/10/18 20:13 Dose: 30 ml Bupropion HCl (Bupropion Xl*) 300 mg PO DAILY [facility] Last Admin: 02/11/18 08:31 Dose: 300 mg Clonazepam (Klonopin Tab(*)) 0.5 mg PO TID [facility] Last Admin: 02/11/18 08:30 Dose: 0.5 mg Desvenlafaxine Succinate (Pristiq (Nf)) 50 mg PO DAILY [facility] Last Admin: 02/11/18 08:30 Dose: 50 mg Docusate Sodium (Colace Cap*) 100 mg PO BID [facility] Last Admin: 02/11/18 08:31 Dose: 100 mg Gabapentin (Neurontin Cap(*)) 800 mg PO QID [facility] Last Admin: 02/11/18 08:31 Dose: 800 mg Hydroxyzine HCl (Atarax Tab*) 25 mg PO BEDTIME [facility] Last Admin: 02/10/18 20:07 Dose: 25 mg Lisinopril (Prinivil Tab*) 10 mg PO DAILY [facility] Last Admin: 02/11/18 08:31 Dose: 10 mg Multivitamins (Theragran Tab*) 1 tab PO DAILY [facility] Last Admin: 02/11/18 08:31 Dose: 1 tab Naproxen (Naprosyn Tab*) 500 mg PO Q12H PRN PRN Reason: PAIN Last Admin: 02/11/18 08:29 Dose: 500 mg - Discharge Plan Discharge Plan: Outpatient Follow Up Outpatient Program: Private Clinician(s) Additional Comments: Marva started on Pristiq 50 mg and tolerated well so far. We will follow her progress. It is anticipated that she will improve in this supportive setting and perhaps using comparison to her own situation. I have been in contact with her psychiatric provider, Yani Phillip, who agrees with my assessment and would like to continue down this path. We will change from Ativan to Klonopin to attempt to give her a more even feeling regarding reduced anxiety. Hydroxyzine will be employed for sleep. Colace is started as well. She has been encouraged to find things to entertain herself and give herself personal goals. She will also be working with Patricia Steve regarding discharge next week (Wednesday ). She has appointments with Rubina Jurado and Yani Phillip (Wednesday at 2 pm) coming up next week. Her plans for the weekend include resting and trying to keep occupied.
[2018-02-11] MEDS: hydrOXYzine HCL TAB* 25 MG PO SCH (20:35)
[2018-02-12] MEDS: Docusate CAP* 100 MG PO SCH ×2 (08:31→20:22)
[2018-02-12] MEDS: Vitamin THERAPEUTIC TAB PO SCH (08:31)
[2018-02-12] MEDS: CMC: Desvenlafaxine (NF) 50 MG TAB PO SCH (08:31)
[2018-02-12] MEDS: BuPROPion XL* 300 MG TAB.XL PO SCH (08:31)
[2018-02-12] MEDS: Lisinopril TAB* 10 MG PO SCH (08:32)
[2018-02-12] MEDS: Gabapentin CAP(*) 400 MG PO SCH ×4 (08:32→20:21)
[2018-02-12] MEDS: clonazePAM TAB(*) 0.5 MG PO SCH ×3 (08:32→20:21)
[2018-02-12] MEDS: Naproxen TAB* 250 MG PO PRN (08:35)
[2018-02-12] MEDS: Acetaminophen TAB* 325 MG PO PRN ×2 (08:35→19:15)
[2018-02-12] MEDS: hydrOXYzine HCL TAB* 25 MG PO SCH (20:21)
[2018-02-12] MEDS: Al Hydrox/Mg Hydrox/Simet LIQ* 30 ML UDC PO PRN (20:24)
[2018-02-13] MEDS: clonazePAM TAB(*) 0.5 MG PO SCH ×3 (08:41→20:09)
[2018-02-13] MEDS: Vitamin THERAPEUTIC TAB PO SCH (08:42)
[2018-02-13] MEDS: Gabapentin CAP(*) 400 MG PO SCH ×4 (08:42→20:10)
[2018-02-13] MEDS: Lisinopril TAB* 10 MG PO SCH (08:42)
[2018-02-13] MEDS: CMC: Desvenlafaxine (NF) 50 MG TAB PO SCH (08:42)
[2018-02-13] MEDS: BuPROPion XL* 300 MG TAB.XL PO SCH (08:43)
[2018-02-13] MEDS: Docusate CAP* 100 MG PO SCH ×2 (08:44→20:10)
[2018-02-13] MEDS: Naproxen TAB* 250 MG PO PRN (08:46)
[2018-02-13] MEDS: Acetaminophen TAB* 325 MG PO PRN (08:46)
[2018-02-13] MEDS: hydrOXYzine HCL TAB* 25 MG PO SCH (20:09)
[2018-02-14] MEDS: Gabapentin CAP(*) 400 MG PO SCH ×2 (08:24→13:13)
[2018-02-14] MEDS: BuPROPion XL* 300 MG TAB.XL PO SCH (08:24)
[2018-02-14] MEDS: Vitamin THERAPEUTIC TAB PO SCH (08:25)
[2018-02-14] MEDS: Docusate CAP* 100 MG PO SCH (08:25)
[2018-02-14] MEDS: Lisinopril TAB* 10 MG PO SCH (08:25)
[2018-02-14] MEDS: clonazePAM TAB(*) 0.5 MG PO SCH ×2 (08:25→13:13)
[2018-02-14] MEDS: CMC: Desvenlafaxine (NF) 50 MG TAB PO SCH (08:25)
[2018-02-14 11:18] VITALS: BP 136/83
== END 2018-02-14 13:30 | disposition home or self-care (01) | DRG 751 ==
LOC: ED 11:47 → BSU 18:00
PROVIDERS: ADMIT Psychiatry & Neurology Psychiatry; ATTEND Psychiatry & Neurology Psychiatry
DX: F33.2 Major depressive disorder, recurrent severe without psychotic features (principal); R45.851 Suicidal ideations; M79.7 Fibromyalgia; R52 Pain, unspecified; Z85.3 Personal history of malignant neoplasm of breast; Z81.8 Family history of other mental and behavioral disorders; Z81.1 Family history of alcohol abuse and dependence
CPT/HCPCS: 36415; 80053; 80061; 80175; 80307; 80320; 80329; 81003; 81015; 83036; 84443; 85025; 87086; 90686; 90853; 99222; 99232; 99233; 99238; 99284; A9270-GY; G0480

== ENCOUNTER 2019-07-30 15:07 | Emergency (ER) | payer BC, MEDICARE ==
--- NOTE | 2019-07-30 15:23 | ED ---
Lower Extremity - HPI Summary HPI Summary: This patient is a 58 year old female presenting to [facility] with a chief complaint of left ankle injury. She states she was helping a family member out of the ambulance when she twisted her ankle. She reports pain, bruising, and swelling of the left ankle. She states it is difficult to put pressure on it when standing. She has no other complaints. - History of Current Complaint Stated Complaint: L ANKLE INJ PER PT Time Seen by Provider: 07/30/19 15:19 Hx Obtained From: Patient Mechanism Of Injury: Twisted Onset of Pain: Hours Onset/Duration: Hours Associated Signs And Symptoms: Positive: Swelling, Bruising - Allergies/Home Medications Allergies/Adverse Reactions: Allergies Allergy/AdvReac Type Severity Reaction Status Date / Time No Known Allergies Allergy Verified 07/30/19 15:31 Home Medications: Home Medications Ergocalciferol (Vitamin D2) [Vitamin D2] 50,000 unit PO WEEKLY 02/06/18 [ History Confirmed 07/25/19] Gabapentin CAP(*) [Neurontin 400 mg CAP(*)] 800 mg PO QID 02/06/18 [History Confirmed 07/25/19] Lisinopril TAB* [Prinivil TAB 10 MG*] 10 mg PO DAILY 02/06/18 [History Confirmed 07/25/19] Naproxen TAB* [Naprosyn 250 mg TAB*] 500 mg PO Q12H PRN tab 02/14/18 [Rx Confirmed 07/25/19] Vitamin THERAPEUTIC TAB* [Theragran TAB*] 1 tab PO DAILY tab 02/14/18 [Rx Confirmed 07/25/19] clonazePAM TAB(*) [Klonopin TAB(*)] 0.5 mg PO TID #45 tab MDD 1.5 mg 02/14/18 [ Rx Confirmed 07/25/19] hydrOXYzine HCL TAB* [Atarax 25 MG TAB*] 25 mg PO BEDTIME #30 tab 02/14/18 [Rx Confirmed 07/25/19] Acetaminophen [Tylenol Extra Strength] 1,000 mg PO DAILY PRN 06/13/19 [History Confirmed 07/25/19] Desvenlafaxine (NF) [Pristiq (NF)] 100 mg PO DAILY 06/13/19 [History Confirmed 07/25/19] Lidocaine PATCH 5%* [Lidoderm 5% Patch*] 1 patch TRANSDERM Q24H PRN 06/13/19 [ History Confirmed 07/25/19] Probiotic 1 cap PO DAILY 06/13/19 [History Confirmed 07/25/19] BuPROPion XL* [Bupropion XL*] 450 mg PO DAILY 06/30/19 [History Confirmed ] PMH/Surg Hx/FS Hx/Imm Hx Endocrine/Hematology History: Denies: Hx Diabetes Cardiovascular History: Reports: Hx Hypertension - CONTROLLED Denies: Hx Pacemaker/ICD Respiratory History: Denies: Hx Asthma, Hx Chronic Obstructive Pulmonary Disease (COPD), Hx Sleep Apnea GI History: Denies: Hx Ulcer History: Denies: Hx Dialysis, Hx Renal Disease Musculoskeletal History: Reports: Hx Arthritis, Hx Back Problems Denies: Hx Rheumatoid Arthritis, Hx Osteoporosis Sensory History: Reports: Hx Contacts or Glasses Denies: Hx Hearing Aid Opthamlomology History: Reports: Hx Contacts or Glasses Neurological History: Reports: Other Neuro Impairments/Disorders - PAIN CLINIC PATIENT Denies: Hx Migraine, Hx Seizures Psychiatric History: Reports: Hx Anxiety, Hx Eating Disorder - bulemia, Hx Depression Denies: Hx Panic Disorder, Hx of Violent Episodes Against Others - Cancer History Cancer Type, Location and Year: BREAST Hx Chemotherapy: Yes - BREAST 2007 Hx Radiation Therapy: Yes - BREAST 2007 - Surgical History Surgery Procedure, Year, and Place: herniated L4/5 & L5-S1 DISKECTOMY/ LAMINECTOMY 1996, 2000 (poor outcome first time)LUMPECTOMY LEFT BREAST 2007, IDET 2000 - [place]. 1991 BUNIONECTOMY AND SCREW ON LT BIG TOE. 1996 WISDOM TEETH. 2009LT KNEE MENISCUS Infectious Disease History: Denies: Hx Clostridium Difficile, Hx Hepatitis, Hx Human Immunodeficiency Virus (HIV), Hx of Known/Suspected MRSA, Hx Shingles, Hx Tuberculosis, Hx Known/ Suspected VRE, Hx Known/Suspected VRSA, History Other Infectious Disease - Family History Known Family History: Positive: Hypertension, Diabetes - Social History Alcohol Use: Weekly Alcohol Amount: 0-4 Substance Use Type: Reports: None Smoking Status (MU): Never Smoked Tobacco Review of Systems Positive: Edema, Other - Left ankle pain Positive: Bruising All Other Systems Reviewed And Are Negative: Yes Physical Exam - Summary Physical Exam Summary: VITAL SIGNS: Reviewed. GENERAL: Patient is a well-developed and nourished MALE who is lying comfortable in the stretcher. Patient is not in any acute respiratory distress. HEAD AND FACE: No signs of trauma. No ecchymosis, hematomas or skull depressions. No sinus tenderness. EYES: PERRLA, EOMI x 2, No injected conjunctiva, no nystagmus. EARS: Hearing grossly intact. Ear canals and tympanic membranes are within normal limits. MOUTH: Oropharynx within normal limits. NECK: Supple, trachea is midline, no adenopathy, no JVD, no carotid bruit, no c- spine tenderness, neck with full ROM. CHEST: Symmetric, no tenderness at palpation. LUNGS: Clear to auscultation bilaterally. No wheezing or crackles. CVS: Regular rate and rhythm, S1 and S2 present, no murmurs or gallops appreciated. ABDOMEN: Soft, non-tender. No signs of distention. No rebound, no guarding, and no masses palpated. Bowel sounds are normal. EXTREMITIES: FROM in all major joints, swelling and bruising over the left lateral malleolus. NEURO: Alert and oriented x 3. No acute neurological deficits. Speech is normal and follows commands. SKIN: Dry and warm. Triage Information Reviewed: Yes Vital Signs Reviewed: Yes Procedures - Sedation Patient Received Moderate/Deep Sedation with Procedure: No Diagnostics - Laboratory Lab Statement: Any lab studies that have been ordered have been reviewed, and results considered in the medical decision making process. - Radiology Left foot XR Radiology Interpretation Completed By: Radiologist Summary of Radiographic Findings: There is no radiographically apparent acute fracture or dislocation. ED Provider has reviewed this report. Left ankle XR Radiology Interpretation Completed By: Radiologist Summary of Radiographic Findings: There is no radiographically apparent acute fracture or dislocation. ED Provider has reviewed this report. Lower Extremity Course/Dx - Course Assessment/Plan: This patient is a 58 year old female presenting to [facility] with a chief complaint of left ankle injury. She states she was helping a family member out of the ambulance when she twisted her ankle. She reports pain, bruising, and swelling of the left ankle. She states it is difficult to put pressure on it when standing. She has no other complaints. Ankle and foot xray IMPRESSION: THERE IS NO RADIOGRAPHICALLY APPARENT ACUTE FRACTURE OR DISLOCATION. If the patient's symptoms persist, follow-up imaging is recommended. Patient placed in a gel cast and discharged home with F/U of PCP. Patient given crutches. - Diagnoses Provider Diagnoses: Ankle sprain Discharge ED - Sign-Out/Discharge Documenting (check all that apply): Patient Departure - Discharge - Discharge Plan Condition: Stable Disposition: HOME Patient Education Materials: Ankle Sprain (ED) Referrals: Chloé Contreras MD [Primary Care Provider] - Additional Instructions: Return to ED with new or worsening symptoms. - Billing Disposition and Condition Condition: STABLE Disposition: Home - Attestation Statements Document Initiated by Jo Annibe: Yes Documenting Scribe: Brian Barrera Provider For Whom Chu is Documenting (Include Credential): Abhishek Allen MD Scribe Attestation: Brian Cordon, scribed for Abhishek Allen MD on 07/30/19 at 2105. Scribe Documentation Reviewed: Yes Provider Attestation: The documentation as recorded by the scribBrian valdez accurately reflects the service I personally performed and the decisions made by me, Abhishek Allen MD Status of Scribe Document: Viewed
[2019-07-30 17:18] VITALS: BP 153/96
== END 2019-07-30 17:17 | disposition home or self-care (01) ==
LOC: ED 15:07
DX: S93.402A Sprain of unspecified ligament of left ankle, initial encounter (principal); X50.1XXA Overexertion from prolonged static or awkward postures, initial encounter; Y93.89 Activity, other specified; Y92.9 Unspecified place or not applicable; I10 Essential (primary) hypertension; F41.9 Anxiety disorder, unspecified; F32.9 Major depressive disorder, single episode, unspecified; Z79.899 Other long term (current) drug therapy
CPT/HCPCS: 99282